=== PATIENT | male | born 1970 | race Caucasian/White ===

== ENCOUNTER 2017-02-14 16:55 | Emergency (ER) | payer OTHER ==
--- NOTE | 2017-02-16 02:42 | ER ---
ADMIT: 02/14/2017 RM/LOC: ER [facility] MR#: [id number] [address] [id number] TONE MAHER N [address] [place] [id number] Emergency Room Report SEX: M AGE: 46 : 1970 DATE: 02/14/2017 HISTORY OF PRESENT ILLNESS: The patient is a 46-year-old male, presents to the emergency room with left arm numbness and tingling sensation. Last week, he had a near syncopal episode at work. He says this has been going on for about 4 days. He is alert and oriented, but seems to be pretty anxious. REVIEW OF SYSTEMS: Otherwise negative. He works at 24-hour shifts, standing. PAST MEDICAL HISTORY: Essentially negative. He does not see any doctor. He has had a cervical fusion due to bulging disk on 29/08. ALLERGIES: HE IS ALLERGIC TO PENICILLIN. SOCIAL HISTORY: He smokes a pack and half a day. PHYSICAL EXAMINATION: GENERAL: He is alert and oriented. VITAL SIGNS: Blood pressure 152/96, which is elevated. NEURO: Cranial nerves II through XII tested within normal limits. He does, however, have decreased sensorium on the left side. NECK: Supple. RESPIRATIONS: No distress. SKIN: Good color and turgor. EXTREMITIES: Nontender. LABORATORY DATA: CT head, negative. EKG, 53 with sinus bradycardia. CBC within normal limits. Chemistry normal. PT, PTT, and INR both normal. CLINICAL IMPRESSION: 1. Near syncopal episode. 2. Sinus bradycardia. 3. Cervical neck disorder. 4. Elevated blood pressure without diagnosis of hypertension. PLAN: The patient was encouraged to wear a Holter monitor for [address] Follow up with Dr. Bucio. I gave him some Flexeril for the pain he has on his cervical neck and he does need to follow up very strongly with the primary provider. He will probably need an MRI to rule out worsening of issues in his cervical and lumbar back. So far he is discharged with a prescription of Flexeril and a Holter monitor follow up. MARK Lubin / Chris Canela MD / betsy JOB #: [id number] CC: Chris Canela MD, Attending Physician Malena Bucio MD, Family Physician
== END 2017-02-14 21:13 | disposition home or self-care (01) ==
LOC: ER 16:55
DX: R55 Syncope and collapse (principal); M50.90 Cervical disc disorder, unspecified, unspecified cervical region; R00.1 Bradycardia, unspecified; R03.0 Elevated blood-pressure reading, without diagnosis of hypertension; F17.210 Nicotine dependence, cigarettes, uncomplicated; Z88.0 Allergy status to penicillin; Z98.1 Arthrodesis status